=== PATIENT | female | born 1975 | race Caucasian/White ===

== ENCOUNTER 2019-01-24 18:39 | Emergency (ER) | payer BC ==
[2019-01-24] MEDS ORDERED: oxyCODONE TAB* 5 MG TAB PO ONE (20:35)
--- NOTE | 2019-01-24 20:38 | ED ---
Lower Extremity - HPI Summary HPI Summary: Patient complains of right knee pain and swelling 2 weeks. Patient states she works on her knees a lot. Patient is ambulatory, denies loss of sensation or function, trauma, fever, cough, sore throat, CP, SOB, N/V/D, abdominal pain, change in urine, change in BM. Medical history is none. - History of Current Complaint Chief Complaint: EDExtremityLower Stated Complaint: "RT KNEE PAIN PER PT" Time Seen by Provider: 01/24/19 20:24 Hx Obtained From: Patient Mechanism Of Injury: Blunt Trauma Onset of Pain: Days Onset/Duration: Weeks Severity Initially: Severe Severity Currently: Severe Pain Intensity: 7 Pain Scale Used: 0-10 Numeric Timing: Constant Location: Is Discrete @ Character Of Pain: Aching, Throbbing Associated Signs And Symptoms: Positive: Swelling Aggravating Factor(s): Standing, Ambulation Alleviating Factor(s): Rest, Ice Able to Bear Weight: Yes - Allergies/Home Medications Allergies/Adverse Reactions: Allergies Allergy/AdvReac Type Severity Reaction Status Date / Time morphine Allergy Headache Verified 01/24/19 18:48 PMH/Surg Hx/FS Hx/Imm Hx Endocrine/Hematology History: Denies: Hx Diabetes Cardiovascular History: Denies: Hx Congestive Heart Failure, Hx Hypertension, Hx Pacemaker/ICD History: Denies: Hx Dialysis, Hx Renal Disease Sensory History: Denies: Hx Hearing Aid Opthamlomology History: Denies: Hx Legally Blind EENT History: Denies: Hx Deafness Neurological History: Denies: Hx Dementia Psychiatric History: Denies: Hx Panic Disorder - Surgical History Surgery Procedure, Year, and Place: EYELID REPAIR FROM LAC, HYSTERECTOMY, TUBAL LIGATION - Immunization History Immunizations Up to Date: Yes Infectious Disease History: No Infectious Disease History: Denies: Traveled Outside the [place] in Last 30 Days - Family History Known Family History: Positive: Other Family History: gallbladder disease - Social History Alcohol Use: None Substance Use Type: Reports: None Hx Tobacco Use: Yes Smoking Status (MU): Heavy Every Day Tobacco Smoker Review of Systems Constitutional: Negative Eyes: Negative ENT: Negative Cardiovascular: Negative Respiratory: Negative Gastrointestinal: Negative Genitourinary: Negative Musculoskeletal: Other Skin: Negative Neurological: Negative Psychological: Normal All Other Systems Reviewed And Are Negative: Yes Physical Exam - Summary Physical Exam Summary: Mild suprapatellar swelling. Tenderness to palpation of patella. Full range of motion right knee. No erythema, ecchymosis, deformity, extra warmth noted. Nontender. Triage Information Reviewed: Yes Vital Signs On Initial Exam: Initial Vitals Temp Pulse Resp BP Pulse Ox 97.6 F 99 20 127/75 100 01/24/19 18:44 01/24/19 18:44 01/24/19 18:44 01/24/19 18:44 01/24/19 18:44 Vital Signs Reviewed: Yes Appearance: Positive: Well-Appearing Skin: Positive: Warm Head/Face: Positive: Normal Head/Face Inspection Eyes: Positive: Normal Neck: Positive: Supple Respiratory/Lung Sounds: Positive: Clear to Auscultation Cardiovascular: Positive: Normal Abdomen Description: Positive: Nontender Musculoskeletal: Positive: Normal Neurological: Positive: Normal Psychiatric: Positive: Normal AVPU Assessment: Alert - Janeen Coma Scale Best Eye Response: 4 - Spontaneous Best Motor Response: 6 - Obeys Commands Best Verbal Response: 5 - Oriented Coma Scale Total: 15 Diagnostics - Vital Signs Vital Signs Temp Pulse Resp BP Pulse Ox 01/24/19 18:44 97.6 F 99 20 127/75 100 - Laboratory Lab Statement: Any lab studies that have been ordered have been reviewed, and results considered in the medical decision making process. Lower Extremity Course/Dx - Course Course Of Treatment: Patient complains of right knee pain and swelling 2 weeks. Patient states she works on her knees a lot. Patient is ambulatory, denies loss of sensation or function, trauma, fever, cough, sore throat, CP, SOB , N/V/D, abdominal pain, change in urine, change in BM. Medical history is none. Physical exam:Mild suprapatellar swelling. Tenderness to palpation of patella. Full range of motion right knee. No erythema, ecchymosis, deformity, extra warmth noted. Nontender. Vital signs within normal limits. Diagnosis bursitis. Recommended ice and ibuprofen and kneepads when she resumes work. - Diagnoses Provider Diagnoses: Bursitis of right knee Discharge - Sign-Out/Discharge Documenting (check all that apply): Patient Departure Patient Received Moderate/Deep Sedation with Procedure: No - Discharge Plan Condition: Stable Disposition: HOME Patient Education Materials: Knee Bursitis (ED) Forms: *Work Release Referrals: Miki RUFFIN,Chris Villegas [Primary Care Provider] - Farheen Larose MD [Medical Doctor] - Additional Instructions: Rest, ice and ibuprofen. If pain persists more than a week follow-up with orthopedics Dr. Larose for further evaluation. Return to the ED for any new or worsening symptoms. - Billing Disposition and Condition Condition: STABLE Disposition: Home
[2019-01-24 21:51] VITALS: BP 101/64
== END 2019-01-24 21:46 | disposition home or self-care (01) ==
LOC: ED 18:39
DX: M70.51 Other bursitis of knee, right knee (principal); M25.562 Pain in left knee; R60.9 Edema, unspecified; Z88.6 Allergy status to analgesic agent; F17.210 Nicotine dependence, cigarettes, uncomplicated
CPT/HCPCS: 99282; A9270-GY

== ENCOUNTER 2019-10-22 17:42 | Emergency (ER) | payer BC ==
[2019-10-22 18:18] LABS: ABS Basophils 0.1 10^3/ul (0-0.2); ABS Eosinophils 0.1 10^3/ul (0-0.6); ABS Lymphocytes 2.4 10^3/ul (1.0-4.8); ABS Monocytes 0.5 10^3/ul (0-0.8); ABS Neutrophils 5.6 10^3/ul (1.5-7.7); Eosinophil % 0.9 %; Hematocrit 43 % (35-47); Hemoglobin 14.8 g/dL (12.0-16.0); Lymphocyte % 28.1 %; Mean Corpuscular HGB Conc 35 g/dL (31-36); Mean Corpuscular Hemoglobin 33 pg (27-31); Mean Corpuscular Volume 94 fL (80-97); Mean Platelet Volume 8.5 fL (7.4-10.4); Platelet Count 260 10^3/uL (150-450); Red Blood Count 4.52 10^6 /uL (3.70-4.87); Red Cell Distribution Width 13 % (10-15); White Blood Count 8.7 10^3/uL (3.5-10.8)
[2019-10-22 18:25] LABS: INR 0.97 (0.82-1.09)
[2019-10-22 18:35] LABS: ALT 16 U/L (7-52); Albumin 4.3 g/dL (3.2-5.2); Albumin/Globulin Ratio 1.7 (1-3); Alkaline Phosphatase 59 U/L (34-104); BUN/Creatinine Ratio 20.7 (8-20); Blood Urea Nitrogen 19 mg/dL (6-24); CO2 Carbon Dioxide 27 mmol/L (22-32); Calcium 9.9 mg/dL (8.6-10.3); Chloride 109 mmol/L (101-111); EGFR Non-African American 66.9 (>60); Globulin 2.5 g/dL (2-4); Glucose 87 mg/dL (70-100); Sodium 141 mmol/L (135-145); Total Protein 6.8 g/dL (6.4-8.9)
[2019-10-22 18:39] LABS: Anion Gap 5 mmol/L (2-11)
[2019-10-22 21:55] VITALS: BP 119/93
[2019-10-22 21:56] LABS: Potassium Redraw 4.2 mmol/L (3.5-5.0)
== END 2019-10-22 22:25 | disposition left against medical advice (07) ==
LOC: ED 17:42
DX: R07.9 Chest pain, unspecified (principal); Z53.21 Procedure and treatment not carried out due to patient leaving prior to being seen by health care provider
CPT/HCPCS: 36415; 80053; 84484; 85025; 85610; 93005; 99282